=== PATIENT | female | born 1940 | race Caucasian/White ===

== ENCOUNTER 2017-04-26 16:27 | Emergency (ER) | payer MEDICARE, BC ==
[2017-04-26 16:33] VITALS: RESP 18
[2017-04-26] MEDS ORDERED: HYDROmorphone 1 MG/ML 1 ML SYRINGE IVP STA (16:50)
[2017-04-26] MEDS ORDERED: SODIUM CHLORIDE 0.9% 1,000 ML IV STA ×2 (16:50)
--- NOTE | 2017-04-26 16:53 | ED ---
Fever HPI - General Source: patient, family, RN notes reviewed Mode of arrival: wheelchair Limitations: no limitations - History of Present Illness MD Complaint: fever, other <Fernando Briggs - Last Filed: 04/26/17 21:51> <Kj Moy - Last Filed: 04/26/17 23:55> - General Chief Complaint: Fever Stated Complaint: Groin Pain Time Seen by Provider: 04/26/17 16:42 - History of Present Illness Initial Comments: This is a 77-year-old female history of multiple medical issues including osteoporosis left rotator cuff surgery history of a Golden-en-Y who states his head he has a 40s work in [place] and back of lower dental pain and groin pain. He has a groin pain in the past she states her urine is darker however she's happy a liter drink she started developing the pain that she's her [place] of oral herpes she had nausea vomiting temperature of 105. She has a cough phlegm production. No leg pain no chest pain. She states she is also a bulge last 4 days because she's not been able take fluids or food in very well. (Fernando Briggs) - Related Data Home Medications Medication Instructions Recorded Confirmed Ferrous Sulfate [Feosol] 325 mg PO BID 11/22/15 04/26/17 Cholecalciferol (Vitamin D3) 2,000 unit PO DAILY 04/26/17 04/26/17 [Vitamin D3] Glucosam/Og-Msm1/C/Migue/Bosw 2 tab PO DAILY 04/26/17 04/26/17 [Glucosamine-Chondroitin Tablet] Previous Rx's Medication Instructions Recorded Apixaban [Eliquis] 5 mg PO BID #74 tab 04/26/17 Nitrofurantoin Monohyd/M-Cryst 100 mg PO Q12HR #20 cap 04/26/17 [Macrobid] Allergies Allergy/AdvReac Type Severity Reaction Status Date / Time hazelnut Allergy Anaphylaxis Verified 04/26/17 18:25 peanut Allergy Unknown Verified 04/26/17 18:25 NSAIDS (Non-Steroidal AdvReac Unknown Verified 04/26/17 18:25 Anti-Inflamma Review of Systems ROS Other: All systems not noted in ROS Statement are negative. <Fernando Briggs - Last Filed: 04/26/17 21:51> ROS Other: All systems not noted in ROS Statement are negative. <Kj Moy - Last Filed: 04/26/17 23:55> ROS Statement: Those systems with pertinent positive or pertinent negative responses have been documented in the HPI. Past Medical History Past Medical History: Rheumatoid Arthritis (RA) Additional Past Medical History / Comment(s): ankylosing spondylitis with spinal stenosis, lt great toe neuropathy, anemia History of Any Multi-Drug Resistant Organisms: None Reported Past Surgical History: Back Surgery, Bariatric Surgery, Cholecystectomy, Hernia Repair, Orthopedic Surgery Additional Past Surgical History / Comment(s): lt rotator cuff repair, golden-en- y procedure, jordi cataract surgery with lens implant, lt wrist repair x 2 with plates and screws, rt ankle tibia surgery Past Anesthesia/Blood Transfusion Reactions: No Reported Reaction Past Psychological History: No Psychological Hx Reported Smoking Status: Former smoker Past Alcohol Use History: None Reported Past Drug Use History: None Reported - Past Family History Mother Family Medical History: Cancer Additional Family Medical History / Comment(s): bowel and liver cancer Father Family Medical History: Cancer Additional Family Medical History / Comment(s): multiple myeloma Brother(s) Family Medical History: Blood Disorder <Fernando Briggs - Last Filed: 04/26/17 21:51> General Exam Limitations: no limitations General appearance: alert, in no apparent distress Head exam: Present: atraumatic, normocephalic, normal inspection Eye exam: Present: normal appearance, PERRL, EOMI. Absent: scleral icterus, conjunctival injection, periorbital swelling ENT exam: Present: mucous membranes dry Neck exam: Present: normal inspection. Absent: tenderness, meningismus, lymphadenopathy Respiratory exam: Present: normal lung sounds bilaterally. Absent: respiratory distress, wheezes, rales, rhonchi, stridor Cardiovascular Exam: Present: regular rate, normal rhythm, normal heart sounds. Absent: systolic murmur, diastolic murmur, rubs, gallop, clicks GI/Abdominal exam: Present: soft, tenderness (Suprapubic abdominal pain no guarding or rebound.), normal bowel sounds. Absent: distended, guarding, rebound, rigid External exam: Present: normal external exam (Mild tenderness palpation over the groin area no evidence for herniation. Lesions no erythema) Extremities exam: Present: normal inspection, full ROM, tenderness (Tenderness palpation over both calves in both medial anterior thighs no definite palpable cords.), normal capillary refill. Absent: pedal edema, joint swelling, calf tenderness Back exam: Present: normal inspection Neurological exam: Present: alert, oriented X3, CN II-XII intact Psychiatric exam: Present: normal affect, normal mood Skin exam: Present: warm, dry, intact, normal color. Absent: rash <Fernando Briggs - Last Filed: 04/26/17 21:51> <Kj Myo - Last Filed: 04/26/17 23:55> - General Exam Comments Initial Comments: This is a well-developed well-nourished awake alert anxious appearing female ( Fernando Briggs) Course <Fernando Briggs - Last Filed: 04/26/17 21:51> <Kj Moy - Last Filed: 04/26/17 23:55> Vital Signs 04/26/17 04/26/17 04/26/17 16:29 17:20 18:25 Temperature 101.6 F H 99.3 F Pulse Rate 97 90 80 Respiratory 18 18 18 Rate Blood Pressure 140/66 124/64 116/56 O2 Sat by Pulse 99 97 96 Oximetry 04/26/17 04/26/17 04/26/17 20:36 21:45 23:12 Temperature 97.3 F L Pulse Rate 90 74 64 Respiratory 18 18 18 Rate Blood Pressure 142/77 97/55 104/53 O2 Sat by Pulse 98 98 98 Oximetry - Reevaluation(s) Reevaluation #1: 04/26/17 21:51 The patient will be endorsed to Dr. Moy will make the final disposition IS PENDING (Fernando Briggs) 04/26/17 22:27 Patient reevaluated and resting comfortably in bed. Abdomen is soft and nontender. Pedal pulses are intact. Patient updated with results still this time. Upon discussed with Dr. Briggs there was question whether or not to do a CAT scan of the abdomen and pelvis. Patient is agreeable to do this and will be ordered. 04/26/17 23:49 Patient again reexamined and requesting discharge home. Patient updated on results and need for follow-up. Patient previously had complained only of discomfort of her pelvic region and legs. Urinalysis shows possible urinary tract infection and patient will be covered with antibiotics for this. (Kj Moy) Medical Decision Making - Lab Data Result diagrams: 04/26/17 16:55 04/26/17 16:55 <Fernando Briggs - Last Filed: 04/26/17 21:51> - Lab Data Result diagrams: 04/26/17 16:55 04/26/17 16:55 - Radiology Data Radiology results: report reviewed (Computed tomography scan of the abdomen pelvis shows no acute abnormality. Postsurgical change. Comments of renal collecting system. Bilateral lower extremity ultrasound shows evidence of minimal thrombosis, DVT.), image reviewed (KUB and chest x-ray show no acute process.) <Kj Moy - Last Filed: 04/26/17 23:55> - Lab Data Lab Results 04/26/17 04/26/17 04/26/17 Range/Units 16:55 16:55 16:55 WBC 8.6 (3.8-10.6) k/uL RBC 3.92 (3.80-5.40) m/uL Hgb 10.9 L (11.4-16.0) gm/dL Hct 34.9 (34.0-46.0) % MCV 89.2 (80.0-100.0) fL MCH 27.7 (25.0-35.0) pg MCHC 31.1 (31.0-37.0) g/dL RDW 14.3 (11.5-15.5) % Plt Count 113 L (150-450) k/uL Neutrophils % 79 % Lymphocytes % 11 % Monocytes % 7 % Eosinophils % 0 % Basophils % 0 % Neutrophils # 6.8 (1.3-7.7) k/uL Lymphocytes # 0.9 L (1.0-4.8) k/uL Monocytes # 0.6 (0-1.0) k/uL Eosinophils # 0.0 (0-0.7) k/uL Basophils # 0.0 (0-0.2) k/uL D-Dimer 2.04 H (<0.60) mg/L FEU Sodium 138 (137-145) mmol/L Potassium 4.3 (3.5-5.1) mmol/L Chloride 104 (98-107) mmol/L Carbon Dioxide 25 (22-30) mmol/L Anion Gap 9 mmol/L BUN 19 H (7-17) mg/dL Creatinine 0.80 (0.52-1.04) mg/dL Est GFR (MDRD) Af Amer >60 (>60 ml/min/1.73 sqM) Est GFR (MDRD) Non-Af >60 (>60 ml/min/1.73 sqM) Glucose 107 H (74-99) mg/dL Calcium 8.5 (8.4-10.2) mg/dL Total Bilirubin 0.6 (0.2-1.3) mg/dL AST 30 (14-36) U/L ALT 37 (9-52) U/L Alkaline Phosphatase 109 (38-126) U/L Total Protein 5.5 L (6.3-8.2) g/dL Albumin 3.0 L (3.5-5.0) g/dL Amylase 76 (30-110) U/L Lipase 348 H (23-300) U/L Urine Color Urine Appearance (Clear) Urine pH (5.0-8.0) Ur Specific [place] (1.001-1.035) Urine Protein (Negative) Urine Glucose (UA) (Negative) Urine Ketones (Negative) Urine Blood (Negative) Urine Nitrite (Negative) Urine Bilirubin (Negative) Urine Urobilinogen (<2.0) mg/dL Ur Leukocyte Esterase (Negative) Urine RBC (0-5) /hpf Urine WBC (0-5) /hpf Ur Squamous Epith Cells (0-4) /hpf Amorphous Sediment (None) /hpf Hyaline Casts (0-2) /lpf Granular Casts (0) /lpf Urine Mucus (None) /hpf 04/26/ Range/Units 18:36 WBC (3.8-10.6) k/uL RBC (3.80-5.40) m/uL Hgb (11.4-16.0) gm/dL Hct (34.0-46.0) % MCV (80.0-100.0) fL MCH (25.0-35.0) pg MCHC (31.0-37.0) g/dL RDW (11.5-15.5) % Plt Count (150-450) k/uL Neutrophils % % Lymphocytes % % Monocytes % % Eosinophils % % Basophils % % Neutrophils # (1.3-7.7) k/uL Lymphocytes # (1.0-4.8) k/uL Monocytes # (0-1.0) k/uL Eosinophils # (0-0.7) k/uL Basophils # (0-0.2) k/uL D-Dimer (<0.60) mg/L FEU Sodium (137-145) mmol/L Potassium (3.5-5.1) mmol/L Chloride (98-107) mmol/L Carbon Dioxide (22-30) mmol/L Anion Gap mmol/L BUN (7-17) mg/dL Creatinine (0.52-1.04) mg/dL Est GFR (MDRD) Af Amer (>60 ml/min/1.73 sqM) Est GFR (MDRD) Non-Af (>60 ml/min/1.73 sqM) Glucose (74-99) mg/dL Calcium (8.4-10.2) mg/dL Total Bilirubin (0.2-1.3) mg/dL AST (14-36) U/L ALT (9-52) U/L Alkaline Phosphatase (38-126) U/L Total Protein (6.3-8.2) g/dL Albumin (3.5-5.0) g/dL Amylase (30-110) U/L Lipase (23-300) U/L Urine Color Yellow Urine Appearance Cloudy H (Clear) Urine pH 5.5 (5.0-8.0) Ur Specific [place] 1.012 (1.001-1.035) Urine Protein 1+ H (Negative) Urine Glucose (UA) Negative (Negative) Urine Ketones Negative (Negative) Urine Blood Moderate H (Negative) Urine Nitrite Negative (Negative) Urine Bilirubin Negative (Negative) Urine Urobilinogen <2.0 (<2.0) mg/dL Ur Leukocyte Esterase Moderate H (Negative) Urine RBC 7 H (0-5) /hpf Urine WBC 9 H (0-5) /hpf Ur Squamous Epith Cells 2 (0-4) /hpf Amorphous Sediment Occasional H (None) /hpf Hyaline Casts 3 H (0-2) /lpf Granular Casts 5 (0) /lpf Urine Mucus Rare H (None) /hpf Disposition <Fernando Briggs - Last Filed: 04/26/17 21:51> <Kj Moy - Last Filed: 04/26/17 23:55> Clinical Impression: DVT (deep venous thrombosis), Urinary tract infection Disposition: HOME SELF-CARE Condition: Stable Instructions: Deep Venous Thrombosis (ED), Urinary Tract Infection in Women (ED ) Additional Instructions: Please follow-up with your primary care physician on Friday. Return for chest pain, difficulty breathing, increased fevers, abdominal pain, worsening symptoms or other concerns. Prescriptions: Apixaban [Eliquis] 5 mg PO BID #74 tab Nitrofurantoin Monohyd/M-Cryst [Macrobid] 100 mg PO Q12HR #20 cap Referrals: Bobby Alvarez MD [Primary Care Provider] - 1-2 days
[2017-04-26] MEDS ORDERED: ACETAMINOPHEN TAB 500 MG TAB PO STA (17:14)
--- NOTE | 2017-04-26 17:33 | XR ---
EXAMINATION TYPE: XR chest 2V DATE OF EXAM: 04/26/2017 COMPARISON: NONE HISTORY: Abdominal pain TECHNIQUE: Frontal and lateral views of the chest are obtained. FINDINGS: There is no heart failure nor confluent pneumonic infiltrate. Costophrenic angles are marli r. There are no hilar masses. Bony thorax is intact. IMPRESSION: No active cardiopulmonary disease.
[2017-04-26 17:34] LABS: Basophils % (A) 0 %; CH 27.9; CHCM 31.4; Eosinophils % (A) 0 %; HCT 34.9 % (34.0-46.0); HDW 2.24; HGB 10.9 gm/dL (11.4-16.0); Luc # (Auto) 0.27; Luc % (Auto) 3; Lymphocytes # (A) 0.9 k/uL (1.0-4.8); Lymphocytes % (A) 11 %; MCH 27.7 pg (25.0-35.0); MCHC 31.1 g/dL (31.0-37.0); MCV 89.2 fL (80.0-100.0); Mean Platelet Volume 10.1; Monocytes # (A) 0.6 k/uL (0-1.0); Monocytes % (A) 7 %; Neutrophils # (A) 6.8 k/uL (1.3-7.7); Neutrophils % (A) 79 %; RBC 3.92 m/uL (3.80-5.40); RDW 14.3 % (11.5-15.5); WBC 8.6 k/uL (3.8-10.6); WBC (Perox) 9.48
--- NOTE | 2017-04-26 17:34 | XR ---
EXAMINATION TYPE: XR KUB DATE OF EXAM: 04/26/2017 COMPARISON: NONE HISTORY: Pain TECHNIQUE: 2 views FINDINGS: Bowel gas pattern is normal. There is no sign of intestinal obstruction or pneumoperitoneum . Fecal pattern is normal. Lung bases are clear. There are no pathologic calcifications over the kidn eys. There is spurring at the left hip joint. IMPRESSION: Nonacute abdomen.
[2017-04-26 17:54] LABS: ALT 37 U/L (9-52); AST 30 U/L (14-36); Alkaline Phosphatase 109 U/L (38-126); Amylase 76 U/L (30-110); Anion Gap 9 mmol/L; Blood Urea Nitrogen 19 mg/dL (7-17); Calcium 8.5 mg/dL (8.4-10.2); Carbon Dioxide 25 mmol/L (22-30); Chloride 104 mmol/L (98-107); Glucose 107 mg/dL (74-99); Non-African American GFR(MDRD) >60 (>60 ml/min/1.73 sqM); Potassium 4.3 mmol/L (3.5-5.1); Sodium 138 mmol/L (137-145); Total Bilirubin 0.6 mg/dL (0.2-1.3); Total Protein 5.5 g/dL (6.3-8.2)
[2017-04-26 19:01] LABS: Amorphous Sediment,Urine Occasional /hpf; Appearance,Urine Cloudy (Clear); Bilirubin,Urine Negative (Negative); Glucose,Urine (UA) Negative (Negative); Granular Casts,Urine 5 /lpf (0); Ketones,Urine Negative (Negative); Leukocyte Esterase,Urine Moderate (Negative); Mucus,Urine Rare /hpf; Nitrite,Urine Negative (Negative); PH, Urine 5.5 (5.0-8.0); Particle Count 11724; Protein,Urine 1+ (Negative); RBC,Urine 7 /hpf (0-5); Specific Gravity,Urine 1.012 (1.001-1.035); Squamous Epithelial Cell,Urine 2 /hpf (0-4); UA Billing (MACRO vs. MICRO) MICRO; Urobilinogen,Urine <2.0 mg/dL (<2.0); WBC,Urine 9 /hpf (0-5)
[2017-04-26] MEDS ORDERED: KETOROLAC 30 MG/ML 1 ML VIAL IVP STA (19:18)
--- NOTE | 2017-04-26 21:51 | US ---
EXAMINATION TYPE: US venous doppler duplex LE DATE OF EXAM: 04/26/2017 9:38 PM COMPARISON: NONE CLINICAL HISTORY: Pain. Bilateral thigh swelling after [address] [place] S[place] PERFORMED: Bilateral TECHNIQUE: The lower extremity deep venous system is examined utilizing real time linear array sonog jimenez with graded compression, doppler sonography and color-flow sonography. VESSELS IMAGED: External Iliac Vein (EIV) Common Femoral Vein Deep Femoral Vein Greater Saphenous Vein * Femoral Vein Popliteal Vein Small Saphenous Vein * Proximal Calf Veins (* superficial vessels) Right Leg: Wall echoes noted behind stuck venous valves at Right mid Popliteal Vein; otherwise, is negative for DVT Left Leg: Wall echoes noted behind stuck venous valves at Left upper Femoral Vein and left Popliteal Vein; otherwise, is negative for DVT IMPRESSION: There is evidence for minimal thrombus at the valves of the left and right leg in the rig ht popliteal vein and in the left femoral vein. This is consistent with minimal deep venous thrombosi s.
[2017-04-26] MEDS ORDERED: IOHEXOL 350 MG/ML 25 ML BOTTLE (ORAL USE) PO PRN (22:26)
[2017-04-26] MEDS ORDERED: RX INFO: IV CONTRAST WAS GIVEN 1 EACH MISC MISCELLANE PRN (22:26)
[2017-04-26 23:13] VITALS: BP 104/53; PULSE 64; TEMP 97.3
--- NOTE | 2017-04-26 23:36 | CT ---
EXAM: CT ABDOMEN + PELVIS With Contrast INDICATION: 77-year-old female with lower abdominal pain, bariatric protocol. TECHNIQUE: Multiple, contiguous axial cuts of the abdomen and pelvis are obtained from the lung bases to the ischial tuberosities without IV contrast material. Sagittal and coronal reformatted images are available. DOSE: CTDI is 53.4 mGy and DLP is 2032.50 mGy-cm. DOSE REDUCTION TECHNIQUE: This CT exam was performed using one or more of the following dose reduction techniques: automated exposure control, adjustment of the mA and/or kV according to patient size, and/or use of iterative reconstruction technique. COMPARISON: None. FINDINGS: Lung bases: Bibasilar atelectasis or fibrosis. Solid organs: Heterogeneous appearance of the liver may relate to hepatic steatosis or chronic liver disease. No focal hepatic lesion is identified. The spleen, pancreas, adrenal glands, and kidneys are within normal limits. Extrarenal pelves bilaterally with prominence of the renal collecting system. Ureters are normal caliber. Bilateral perinephric stranding is nonspecific. The gallbladder is surgically absent. No intrahepatic biliary duct dilatation. Common bile duct is normal caliber. GI tract: There are postsurgical changes of Golden-en-Y gastric bypass. Oral contrast material is present within the gastric pouch and small bowel. The excluded portion of the stomach and Golden limb demonstrate no evidence of contrast material within it. No evidence of bowel obstruction. Small bowel is normal caliber. Scattered sigmoid diverticula are present. No evidence of diverticulitis. No free intraperitoneal air or fluid. The appendix is within normal limits. Lymph nodes: No pathologically enlarged lymph nodes are identified. Vascular: Aorta is tortuous and partially calcified. No evidence of aneurysm. Musculoskeletal: Degenerative changes of the spine are present. Severe appearing osseous lesion or evidence of compression fracture. Pelvic contents: Probable calcified subserosal uterine fibroid along the posterior aspect of the uterus measures up to 3.5 x 3.9 cm. No pelvic adenopathy, free fluid, or inflammatory process. Urinary bladder is decompressed. IMPRESSION: 1. No acute abdominal or pelvic abnormality. 2. Postsurgical changes of Golden-en-Y gastric bypass with no evidence of obstruction or complication. 3. Cholecystectomy. 4. Heterogeneous appearance of the liver parenchyma and may relate to hepatic steatosis or chronic liver disease. Correlate clinically. 5. Prominence of the renal collecting systems bilaterally with no obstructing radiopaque calculi. 6. Subserosal uterine fibroid.
[2017-04-26] MEDS ORDERED: APIXABAN 5 MG TAB PO ONE (23:45)
[2017-04-26] MEDS ORDERED: NITROFURANTOIN MONOHYD/M-CRYST 100 MG CAP PO STA (23:51)
== END 2017-04-27 00:27 | disposition home or self-care (01) ==
LOC: EC 16:27
DX: I82.431 Acute embolism and thrombosis of right popliteal vein (principal); I82.412 Acute embolism and thrombosis of left femoral vein; N39.0 Urinary tract infection, site not specified; R05 Cough; D64.9 Anemia, unspecified; M06.9 Rheumatoid arthritis, unspecified; Z87.891 Personal history of nicotine dependence; Z79.899 Other long term (current) drug therapy; Z88.6 Allergy status to analgesic agent; Z91.010 Allergy to peanuts; Z91.018 Allergy to other foods; Z98.84 Bariatric surgery status
CPT/HCPCS: 36415; 85379; 80053; 82150; 83690; 85025; 81001; 87040; 87077; 87186; 71020; 74000; 93970; 74177; 99284; 96374; 96375; 96361 ×7; J1885; J1170; Q9967

== ENCOUNTER → 2018-05-15 | Outpatient (CLI) | payer MEDICARE, BC ==
[2018-05-15 08:52] LABS: Basophils % (A) 1 %; Eosinophils # (A) 0.1 k/uL (0-0.7); Eosinophils % (A) 2 %; HCT 32.6 % (34.0-46.0); HGB 10.2 gm/dL (11.4-16.0); Hypochromasia Slight; Lymphocytes # (A) 1.6 k/uL (1.0-4.8); Lymphocytes % (A) 38 %; MCH 26.9 pg (25.0-35.0); MCHC 31.2 g/dL (31.0-37.0); MCV 86.3 fL (80.0-100.0); Mean Platelet Volume 7.7; Monocytes # (A) 0.3 k/uL (0-1.0); Monocytes % (A) 7 %; Neutrophils % (A) 49 %; Platelet Count 268 k/uL (150-450); RBC 3.78 m/uL (3.80-5.40); RDW 14.8 % (11.5-15.5); WBC 4.1 k/uL (3.8-10.6)
[2018-05-15 09:10] LABS: Potassium 4.9 mmol/L (3.5-5.1)
== END | disposition home or self-care (01) ==
LOC: LABPAT 08:17
PROVIDERS: ATTEND Orthopaedic Surgery
DX: Z01.818 Encounter for other preprocedural examination (principal); Z01.812 Encounter for preprocedural laboratory examination; G56.02 Carpal tunnel syndrome, left upper limb
CPT/HCPCS: 36415; 80051; 85025; 93005

== ENCOUNTER 2018-05-22 09:07 | Day surgery (SDC) | payer MEDICARE, BC ==
[2018-05-19 09:50] VITALS: BMI 32.8
--- NOTE | 2018-05-21 09:22 | HP ---
HISTORY AND PHYSICAL CHIEF COMPLAINT: Left hand pain and numbness. HISTORY OF PRESENT ILLNESS: The patient is a 78-year-old female who presents with progressive left hand pain and numbness for the past 3 months. She previously underwent fixation of a left distal radius fracture on 05/24/2009. She notes numbness that radiates into her fingers. She also has weakness and night symptoms. PAST MEDICAL HISTORY: Negative. PAST SURGICAL HISTORY: Significant for previous right carpal tunnel release in addition to a left distal radius fracture fixation. CURRENT MEDICATIONS: Iron. ALLERGIES: She notes allergies to ANTI-INFLAMMATORIES. FAMILY HISTORY: Significant for cancer and diabetes. SOCIAL HISTORY: Negative for current tobacco or alcohol use. REVIEW OF SYSTEMS: Sixteen point review of systems otherwise reviewed and is noncontributory. PHYSICAL EXAMINATION: On examination, the patient is approximately 5 feet 6 inches, 210 pounds of endomorphic habitus. HEENT exam is nonfocal. Neck is supple. She is nontender about the left shoulder and elbow. On examination of her left wrist, she has a positive Tinel's over the carpal canal. Adductor pollicis brevis strength is 4/5. Capillary refill is less than 2 seconds in the left digits. X-rays to include multiple views left hand/wrist obtained in the office show a healed distal radius fracture with a volar plate in place. IMPRESSION: 1. Left carpal tunnel syndrome. 2. History of open reduction internal fixation left distal radius fracture. RECOMMENDATIONS: I talked to the patient and her at length regarding her condition and treatment options. At this point she is quite symptomatic and opts to proceed with surgery. We will plan to proceed with left carpal tunnel release. We will likely perform that utilizing local anesthetic and IV sedation as an outpatient procedure. Risks and benefits were discussed at length in layman's terms. MMODL / IJN: [id number] /
[~2018-05-22 09:07] MED LIST: LACTATED RINGERS 1,000 ML IV SCH; LIDOCAINE 1% 20 ML VIAL (10MG/ML) FOR IV START INTRADERMA PRN; ceFAZolin IN SWFI 2 GM/20 ML SYRINGE IVP ONE
[2018-05-22 10:36] VITALS: TEMP 97.8
[2018-05-22] MEDS ORDERED: ONDANSETRON 4 MG/2 ML VIAL IVP ONE ×2 (10:50)
[2018-05-22] MEDS ORDERED: PROPOFOL 10 MG/ML 20 ML VIAL IV ONE (11:20)
[2018-05-22] MEDS ORDERED: MIDAZOLAM 2 MG/2 ML VIAL ONE (11:20)
[2018-05-22] MEDS ORDERED: fentaNYL (PF) 50 MCG/ML 2 ML AMP ONE (11:20)
[2018-05-22] MEDS ORDERED: BUPIVACAINE (PF) 0.5% 30 ML VIAL SQ ONE (11:25)
--- NOTE | 2018-05-22 11:54 | P.OP ---
Date of Procedure: 05/22/18 Preoperative Diagnosis: Left carpal tunnel syndrome Postoperative Diagnosis: Same Procedure(s) Performed: Left carpal tunnel release Anesthesia: MAC, local Surgeon: Tony Apodaca Estimated Blood Loss (ml): 2 Pathology: none sent Condition: stable Disposition: PACU Indications for Procedure: The patient's a 78-year-old female who presents with progressive left hand pain and numbness secondary carpal tunnel syndrome despite conservative measures. A discussion of the risks and benefits of operative intervention versus continued conservative measures was made with patient. She opted to proceed. Operative risks to include infection, neurovascular injury, development of blood clots, possible incomplete resolution of symptoms, possible recurrence of symptoms and need for subsequent procedures was discussed. Operative Findings: as below Description of Procedure: The patient was brought to the operating room, and after induction of IV sedation the left upper extremity was prepped and draped in normal fashion. The proposed incision site was outlined with a skin marker in line with the radial aspect the fourth ray extending from the volar wrist crease distally 2-1/ 2 cm. 10 mL of half percent plain Marcaine was injected in the proposed incision site. The tourniquet was inflated to 250 mmHg. The skin incision was then made. Skin was incised sharply. Subcutaneous tissues were divided sharply. Electrocautery was used for hemostasis. The superficial palmar fascia was identified and split in line with the skin incision. The transverse carpal ligament was identified and transected under direct visualization distally to level the palmar fat pad. I felt this was adequate distal release. Proximally it was taken level the volar wrist crease. A plane above and below the transverse carpal ligament was then bluntly developed. The confluence of the distal forearm fascia and the transverse carpal ligament was then transected under direct visualization with the tines pointed in the ulnar direction. I felt this was adequate proximal release. Neural lysis was not performed. The wound was then irrigated with normal saline. The skin was reapproximated with simple 3-0 nylon suture. A sterile dressing was applied. The tourniquet was deflated less than 15 minutes total tourniquet time. The patient was awoken from sedation and transferred to recovery room in good condition. Blood loss was estimated 2 mL. No complications were incurred. Sponge and needle counts were correct at the end the case.
[2018-05-22 11:56] VITALS: BP 105/67; PULSE 59; RESP 16
== END 2018-05-22 12:31 | disposition home or self-care (01) ==
LOC: OR 09:07
PROVIDERS: ATTEND Orthopaedic Surgery
DX: G56.02 Carpal tunnel syndrome, left upper limb (principal); D64.9 Anemia, unspecified; G62.9 Polyneuropathy, unspecified; M19.90 Unspecified osteoarthritis, unspecified site; M45.9 Ankylosing spondylitis of unspecified sites in spine
CPT/HCPCS: 64721; J2250; J2405; J3010; J2704; J0690

== ENCOUNTER 2018-12-04 08:55 | Day surgery (SDC) | payer MEDICARE, BC ==
[2018-12-02 14:55] VITALS: BMI 34.2
[~2018-12-04 08:55] MED LIST changes: -ceFAZolin IN SWFI 2 GM/20 ML SYRINGE IVP ONE
[2018-12-04 09:11] VITALS: TEMP 96.8
[2018-12-04] MEDS ORDERED: PROPOFOL 10 MG/ML 20 ML VIAL IV ONE (09:16)
--- NOTE | 2018-12-04 09:53 | P.PCN ---
Date of Procedure: 12/04/18 Procedure(s) Performed: BRIEF HISTORY: Patient is a 78-year-old pleasant white female scheduled for an elective colonoscopy as a part of evaluation of prior history of colon polyps. Her last colonoscopy was 3 years ago and was noted to have multiple polyps all of which revealed adenoma. PROCEDURE PERFORMED: Colonoscopy with snare polyp. PREOPERATIVE DIAGNOSIS: History of colon polyps. IV sedation per Anesthesia. PROCEDURE: After informed consent was obtained, the patient, was brought into the endoscopy unit. IV sedation was administered by Anesthesia under continuous monitoring. Digital rectal examination was normal. Initially the Olympus CF- 160 flexible video colonoscope was then inserted in the rectum, gradually advanced into the cecum without any difficulty. Careful examination was performed as the scope was gradually being withdrawn. Ileocecal valve and the appendiceal orifice were visualized and appeared normal. Prep was excellent. Mucosa of the cecum, ascending colon, transverse colon, descending colon, sigmoid colon, appeared normal. There were scattered sigmoid diverticula seen. In the proximal rectum there was a 5 mm polyp that was removed by snare polypectomy. Retroflexion was performed in the rectum and no lesions were seen. The patient tolerated the procedure well. IMPRESSION: 5 mm proximal rectal polyp status post polypectomy Small internal and right Scattered sigmoid diverticulosis RECOMMENDATIONS: Findings of this examination were discussed with the patient as well as her family. She was advised to follow with the biopsy results. If the biopsy shows adenoma, she can have a repeat colonoscopy in 5 years.
[2018-12-04 10:09] VITALS: BP 136/70; PULSE 62; RESP 16
== END 2018-12-04 10:25 | disposition home or self-care (01) ==
LOC: ORWHC2ENDO 08:55
PROVIDERS: ATTEND Internal Medicine Gastroenterology
DX: Z12.11 Encounter for screening for malignant neoplasm of colon (principal); D12.8 Benign neoplasm of rectum; K57.30 Diverticulosis of large intestine without perforation or abscess without bleeding; M19.90 Unspecified osteoarthritis, unspecified site; Z86.010 Personal history of colon polyps; Z88.6 Allergy status to analgesic agent
CPT/HCPCS: 88305; 45385; J2704

== ENCOUNTER 2024-08-25 09:52 | Day surgery (SDC) | payer MEDICARE, BC ==
[2024-08-25 10:14] VITALS: RESP 16; TEMP 97.6
[2024-08-25] MEDS: IV FLUID CONTINUATION 1,000 ML IV ONE (10:29)
[2024-08-25] MEDS: LACTATED RINGERS 1,000 ML IV SCH (10:29)
[2024-08-25] MEDS ORDERED: PROPOFOL 10 MG/ML 20 ML VIAL IV ONE (11:15)
--- NOTE | 2024-08-25 11:34 | P.PCN ---
Date of Procedure: 08/25/24 Procedure(s) Performed: BRIEF HISTORY: Patient is a 84-year-old pleasant white female scheduled for an elective colonoscopy as a part of evaluation by history of colon polyps. Last colonoscopy was 5 years ago. PROCEDURE PERFORMED: Colonoscopy. PREOPERATIVE DIAGNOSIS: History of colon polyps. IV sedation per Anesthesia. PROCEDURE: After informed consent was obtained, the patient, was brought into the endoscopy unit. IV sedation was administered by Anesthesia under continuous monitoring. Digital rectal examination was normal. Initially the Olympus CF-160 flexible video colonoscope was then inserted in the rectum, gradually advanced into the cecum without any difficulty. Careful examination was performed as the scope was gradually being withdrawn. Ileocecal valve and the appendiceal orifice were visualized and appeared normal. Prep was excellent. Mucosa of the cecum, ascending colon, transverse colon, descending colon, sigmoid colon, and rectum appeared normal. Scattered sigmoid diverticulosis retroflexion was performed in the rectum and no lesions were seen. The patient tolerated the procedure well. IMPRESSION: Normal-appearing colon from rectum to cecum with no evidence of colorectal neoplasia Scattered sigmoid diverticulosis. RECOMMENDATIONS: Findings of this examination were discussed with the patient as well as her family.. She she was advised to be on a high-fiber diet and take fiber supplements on a regular basis.
[2024-08-25 12:14] VITALS: BP 131/68; PULSE 69
== END 2024-08-25 12:16 | disposition home or self-care (01) ==
LOC: ORWHC2ENDO 09:52
PROVIDERS: ATTEND Internal Medicine Gastroenterology
DX: Z12.11 Encounter for screening for malignant neoplasm of colon (principal); K57.30 Diverticulosis of large intestine without perforation or abscess without bleeding; Z86.0100 Personal history of colon polyps, unspecified
CPT/HCPCS: J2704; G0121; 45378

== ENCOUNTER → 2024-11-23 | Outpatient (CLI) | payer MEDICARE, BC ==
--- NOTE | 2024-11-23 15:47 | BD ---
EXAMINATION TYPE: Axial Bone Density DATE OF EXAM: 11/23/2024 CLINICAL HISTORY: 84 years old Female. ICD-10 CODE: Z78.0 ASYMPTOMATIC MENOPAUSAL STATE , Additional History: Height: 65 in Weight: 192 lbs FRAX RISK QUESTIONS: History of Fracture in Adulthood: lt wrist fx age 52 and in 1996; rt ankle fx 1998; 2022 fx rt knee, rt shoulder, rt humerus; tailbone fx 2005 HISTORY OF: Spine Fracture: per pt 2005 l-spine History of Wrist Fracture: lt wrist fx age 52 and 1996 Surgery to Spine/Wrist (left): l-spine surgery 2005; lt wrist surgery 1996 EXAM MEASUREMENTS: Bone mineral densitometry was performed using the [employer] System. Bone mineral density about the R hip (g/cm2): 0.676 Bone mineral density about the L hip (g/cm2): 0.664 T Score values are as follows: -----R Neck: -1.3 -----L Neck: -1.3 -----R Total: -2.6 -----L Total: -2.7 Z Score values are as follows: -----R Neck: 0.5 -----L Neck: 0.5 -----R Total: -1.0 -----L Total: -1.1 Bone mineral density baseline FRAX%s: The graph provided illustrates a 17.8% chance for a major osteoporotic fx and a 3.9% chance f or the hips probability for fx in 10 years time. IMPRESSION: Osteoporosis (T Score less than -2.5). There is increased fracture risk and therapy is usually indicated based on age. Re-Screen 1-2 years. NOTE: T-SCORE=SD OF THE YOUNG ADULT MEAN. [facility], , 11/23/2024 3:45 PM
== END | disposition home or self-care (01) ==
LOC: RADBDWWP 07:59
PROVIDERS: ATTEND Family Medicine
DX: Z78.0 Asymptomatic menopausal state (principal); M81.0 Age-related osteoporosis without current pathological fracture
CPT/HCPCS: 77080